=== PATIENT | female | born 1960 | race African-American/Black ===

== ENCOUNTER 2018-04-05 02:10 | Inpatient (IN) | payer BC ==
[2018-04-05] MEDS ORDERED: DOCUSATE SODIUM 100 MG CAP PO (03:00)
[2018-04-05] MEDS ORDERED: NACL 0.9% 3 ML SYG IV (03:00)
[2018-04-05] MEDS ORDERED: ONDANSETRON 4 MG INJ IV (03:00)
[2018-04-05] MEDS ORDERED: METOCLOPRAMIDE 10 MG INJ IV (03:00)
[2018-04-05] MEDS ORDERED: ACETAMINOPHEN 325 MG TAB PO (03:00)
[2018-04-05] MEDS ORDERED: BISACODYL (EC) 5 MG TAB PO (03:00)
[2018-04-05] MEDS: SOD CHLORIDE 0.9% 1,000 ML IV ×5 (03:28→23:03)
[2018-04-05] MEDS: morphine 4 MG/ML VIAL IV ×6 (03:42→20:40)
[2018-04-05 05:12] LABS: ADD MAN DIFF? NO
[2018-04-05 05:17] LABS: BASOPHILS % 0.2 % (0.0-2.0); EOSINOPHILS # 0.1 10^3/ul (0.0-0.5); EOSINOPHILS % 2.7 % (0.0-7.0); HEMATOCRIT 32.2 % (37.0-47.0); HEMOGLOBIN 10.4 g/dl (12.0-16.0); LYMPHOCYTES # 1.7 10^3/ul (0.8-2.9); LYMPHOCYTES % 36.7 % (15.0-51.0); MEAN CORPUSCULAR HEMOGLOBIN 29.9 pg (29.0-33.0); MEAN CORPUSCULAR HGB CONC 32.3 g/dl (32.0-37.0); MEAN CORPUSCULAR VOLUME 92.5 fl (82.0-101.0); MEAN PLATELET VOLUME 9.9 fl (7.4-10.4); MONOCYTE # 0.4 10^3/ul (0.3-0.9); MONOCYTES % 8.2 % (0.0-11.0); NEUTROPHIL # 2.3 10^3/ul (1.6-7.5); NEUTROPHILS % 51.8 % (39.0-77.0); PLATELET COUNT 205 10^3/UL (140-415); RED BLOOD COUNT 3.48 10^6/ul (4.20-5.40); RED CELL DISTRIBUTION WIDTH 13.6 % (11.5-14.5)
[2018-04-05 05:17] LABS: WHITE BLOOD COUNT 4.5 10^3/ul (4.8-10.8)
[2018-04-05] MEDS ORDERED: ALBUTEROL 0.083% (NEB) 2.5 MG/3 ML AMP HHN (05:30)
[2018-04-05 05:33] LABS: INR 0.99; PROTIME 13.2 Sec (11.9-14.9)
[2018-04-05 05:34] LABS: PARTIAL THROMBOPLASTIN TIME 28.3 Sec (23.0-35.0)
[2018-04-05 05:36] LABS: LIPASE 917 U/L (23-300)
[2018-04-05 05:39] LABS: ALANINE AMINOTRANSFERASE 23 IU/L (13-69); ALBUMIN 3.3 g/dl (3.3-4.9); ALBUMIN/GLOBULIN RATIO 1.22; ALKALINE PHOSPHATASE 110 IU/L (42-121); AMYLASE 166 U/L (11-123); ANION GAP 9 (5-13); ASPARTATE AMINO TRANSFERASE 21 IU/L (15-46); BILIRUBIN,INDIRECT 0.1 mg/dl (0-1.1); BILIRUBIN,TOTAL 0.1 mg/dl (0.2-1.3); BLOOD UREA NITROGEN 10 mg/dl (7-20); CALCIUM 8.4 mg/dl (8.4-10.2); CARBON DIOXIDE 27 mmol/L (21-31); CHLORIDE 108 mmol/L (97-110); CHOLESTEROL 170 mg/dl (100-200); CREATININE 0.57 mg/dl (0.44-1.00); Estimated GFR > 60 mL/min (>60); GLUCOSE 109 mg/dl (70-220); HDL CHOLESTEROL 28 mg/dl (37-92); LDL CHOLESTEROL,CALCULATED 118 mg/dl; MAGNESIUM 1.6 mg/dl (1.7-2.5); POTASSIUM 3.5 mmol/L (3.5-5.1); SODIUM 144 mmol/L (135-144); TRIGLYCERIDES 118 mg/dl (0-149)
[2018-04-05 05:44] LABS: HEMOGLOBIN A1C 5.9 % (0-5.9)
[2018-04-05] MEDS: AMLODIPINE 5 MG TAB PO (08:54)
[2018-04-05] MEDS: BENAZEPRIL 20 MG TAB PO (08:54)
[2018-04-05] MEDS: DIATR MEGLU/DIATRIZOATE SODIUM 120 ML BTL (11:11)
[2018-04-05] MEDS: MAGNESIUM SULFATE 2 GM/50 ML 50 ML IVPB (14:45)
[2018-04-05 17:28] LABS: ADD UMIC NO; UR ASCORBIC ACID NEGATIVE (NEGATIVE); UR BILIRUBIN (Dip) NEGATIVE (NEGATIVE); UR BLOOD (Dip) NEGATIVE (NEGATIVE); UR CLARITY CLEAR (CLEAR); UR COLOR YELLOW (YELLOW); UR GLUCOSE (Dip) NEGATIVE (NEGATIVE); UR KETONES (Dip) NEGATIVE (NEGATIVE); UR LEUKOCYTE ESTERASE (Dip) NEGATIVE Leu/ul (NEGATIVE); UR NITRITE (Dip) NEGATIVE (NEGATIVE); UR SPECIFIC GRAVITY (Dip) 1.016 (1.003-1.030); UR TOTAL PROTEIN (Dip) NEGATIVE (NEGATIVE); UR UROBILINOGEN (Dip) NEGATIVE (NEGATIVE)
[2018-04-05 17:51] LABS: AMPHETAMINE/METHAMPHETAMINE Negative (NEGATIVE); BARBITURATES Negative (NEGATIVE); BENZODIAZEPINES Negative (NEGATIVE); CANNABINOIDS Negative (NEGATIVE); COCAINE Negative (NEGATIVE)
[2018-04-05 18:00] LABS: OPIATES Positive (NEGATIVE)
[2018-04-05] MEDS: CARISOPRODOL 350 MG TAB PO (21:53)
[2018-04-06] MEDS: morphine 4 MG/ML VIAL IV ×6 (00:01→21:00)
[2018-04-06] MEDS: CARISOPRODOL 350 MG TAB PO (04:18)
[2018-04-06] MEDS: SOD CHLORIDE 0.9% 1,000 ML IV ×5 (04:19→23:46)
[2018-04-06 06:13] LABS: ADD MAN DIFF? NO
[2018-04-06 06:16] LABS: WHITE BLOOD COUNT 6.4 10^3/ul (4.8-10.8)
[2018-04-06 06:16] LABS: BASOPHILS % 0.3 % (0.0-2.0); EOSINOPHILS # 0.1 10^3/ul (0.0-0.5); HEMATOCRIT 31.7 % (37.0-47.0); HEMOGLOBIN 10.5 g/dl (12.0-16.0); LYMPHOCYTES # 1.7 10^3/ul (0.8-2.9); LYMPHOCYTES % 26.1 % (15.0-51.0); MEAN CORPUSCULAR HEMOGLOBIN 29.9 pg (29.0-33.0); MEAN CORPUSCULAR HGB CONC 33.1 g/dl (32.0-37.0); MEAN CORPUSCULAR VOLUME 90.3 fl (82.0-101.0); MEAN PLATELET VOLUME 9.5 fl (7.4-10.4); MONOCYTE # 0.4 10^3/ul (0.3-0.9); MONOCYTES % 5.5 % (0.0-11.0); NEUTROPHIL # 4.2 10^3/ul (1.6-7.5); NEUTROPHILS % 65.8 % (39.0-77.0); PLATELET COUNT 252 10^3/UL (140-415); RED BLOOD COUNT 3.51 10^6/ul (4.20-5.40); RED CELL DISTRIBUTION WIDTH 13.4 % (11.5-14.5)
[2018-04-06 06:45] LABS: LIPASE 432 U/L (23-300)
[2018-04-06 06:48] LABS: MAGNESIUM 1.9 mg/dl (1.7-2.5)
[2018-04-06 06:48] LABS: PHOSPHORUS 2.5 mg/dl (2.5-4.9)
[2018-04-06 07:13] LABS: ALANINE AMINOTRANSFERASE 26 IU/L (13-69); ALBUMIN 3.5 g/dl (3.3-4.9); ALBUMIN/GLOBULIN RATIO 1.25; ALKALINE PHOSPHATASE 125 IU/L (42-121); AMYLASE 107 U/L (11-123); ANION GAP 11 (5-13); ASPARTATE AMINO TRANSFERASE 21 IU/L (15-46); BILIRUBIN,INDIRECT 0.1 mg/dl (0-1.1); BILIRUBIN,TOTAL 0.1 mg/dl (0.2-1.3); BLOOD UREA NITROGEN 4 mg/dl (7-20); CARBON DIOXIDE 26 mmol/L (21-31); CHLORIDE 106 mmol/L (97-110); Estimated GFR > 60 mL/min (>60); GLUCOSE 172 mg/dl (70-220); POTASSIUM 3.4 mmol/L (3.5-5.1); SODIUM 143 mmol/L (135-144); TOTAL PROTEIN 6.3 g/dl (6.1-8.1)
[2018-04-06] MEDS: BENAZEPRIL 20 MG TAB PO (08:57)
[2018-04-06] MEDS: AMLODIPINE 5 MG TAB PO (08:57)
[2018-04-06] MEDS: BARIUM SULF 2% 450 ML BTL (BERRY SMOOTHIE) PO (13:31)
[2018-04-06] MEDS: VANCOMYCIN HCL 250 MG/5ML POSYG PO ×2 (13:42→17:40)
[2018-04-06] MEDS: METOCLOPRAMIDE 10 MG INJ IV ×2 (14:45→21:00)
[2018-04-06] MEDS: IOHEXOL 300MG/ML 150 ML BTL (15:13)
[2018-04-06] MEDS: SOD CHLORIDE 0.9% 100 ML (15:13)
[2018-04-06] MEDS: POTASSIUM CHLORIDE (SR) 10 MEQ TAB PO (20:59)
[2018-04-07] MEDS: VANCOMYCIN HCL 250 MG/5ML POSYG PO ×5 (00:30→23:57)
[2018-04-07] MEDS: morphine 4 MG/ML VIAL IV ×7 (00:31→23:05)
[2018-04-07] MEDS: SOD CHLORIDE 0.9% 1,000 ML IV ×4 (02:32→09:46)
[2018-04-07] MEDS: METOCLOPRAMIDE 10 MG INJ IV ×3 (03:00→08:33)
[2018-04-07 06:31] LABS: ADD MAN DIFF? NO
[2018-04-07 06:48] LABS: BASOPHILS % 0.5 % (0.0-2.0); EOSINOPHILS # 0.2 10^3/ul (0.0-0.5); EOSINOPHILS % 2.8 % (0.0-7.0); HEMATOCRIT 32.1 % (37.0-47.0); HEMOGLOBIN 10.8 g/dl (12.0-16.0); LYMPHOCYTES # 2.3 10^3/ul (0.8-2.9); LYMPHOCYTES % 35.7 % (15.0-51.0); MEAN CORPUSCULAR HEMOGLOBIN 29.8 pg (29.0-33.0); MEAN CORPUSCULAR HGB CONC 33.6 g/dl (32.0-37.0); MEAN CORPUSCULAR VOLUME 88.4 fl (82.0-101.0); MEAN PLATELET VOLUME 9.8 fl (7.4-10.4); MONOCYTE # 0.5 10^3/ul (0.3-0.9); MONOCYTES % 7.8 % (0.0-11.0); NEUTROPHIL # 3.4 10^3/ul (1.6-7.5); NEUTROPHILS % 52.9 % (39.0-77.0); PLATELET COUNT 266 10^3/UL (140-415); RED BLOOD COUNT 3.63 10^6/ul (4.20-5.40)
[2018-04-07 06:48] LABS: WHITE BLOOD COUNT 6.4 10^3/ul (4.8-10.8)
[2018-04-07 07:01] LABS: LIPASE 221 U/L (23-300)
[2018-04-07 07:07] LABS: AMYLASE 60 U/L (11-123)
[2018-04-07 07:14] LABS: PHOSPHORUS 2.9 mg/dl (2.5-4.9)
[2018-04-07 07:14] LABS: MAGNESIUM 1.7 mg/dl (1.7-2.5)
[2018-04-07 07:23] LABS: ALANINE AMINOTRANSFERASE 24 IU/L (13-69); ALBUMIN 3.7 g/dl (3.3-4.9); ALBUMIN/GLOBULIN RATIO 1.32; ALKALINE PHOSPHATASE 132 IU/L (42-121); ANION GAP 10 (5-13); ASPARTATE AMINO TRANSFERASE 27 IU/L (15-46); BILIRUBIN,INDIRECT 0.3 mg/dl (0-1.1); BILIRUBIN,TOTAL 0.3 mg/dl (0.2-1.3); BLOOD UREA NITROGEN 3 mg/dl (7-20); CALCIUM 8.7 mg/dl (8.4-10.2); CARBON DIOXIDE 29 mmol/L (21-31); CHLORIDE 106 mmol/L (97-110); CREATININE 0.53 mg/dl (0.44-1.00); Estimated GFR > 60 mL/min (>60); GLUCOSE 115 mg/dl (70-220); POTASSIUM 3.5 mmol/L (3.5-5.1); SODIUM 145 mmol/L (135-144); TOTAL PROTEIN 6.5 g/dl (6.1-8.1)
[2018-04-07] MEDS: AMLODIPINE 5 MG TAB PO (08:32)
[2018-04-07] MEDS: BENAZEPRIL 20 MG TAB PO (08:32)
[2018-04-07] MEDS ORDERED: METOCLOPRAMIDE 10 MG INJ IV (09:00)
[2018-04-07] MEDS: ENOXAPARIN 40 MG/0.4 ML SYG SC (13:13)
[2018-04-07] MEDS: LACTOBACILLUS RHAMNOSUS CAP PO (20:51)
[2018-04-08] MEDS: morphine 4 MG/ML VIAL IV ×5 (03:19→21:57)
[2018-04-08] MEDS: CARISOPRODOL 350 MG TAB PO ×2 (04:16→22:03)
[2018-04-08] MEDS: VANCOMYCIN HCL 250 MG/5ML POSYG PO ×3 (05:10→17:51)
[2018-04-08 05:46] LABS: ADD MAN DIFF? NO
[2018-04-08 05:50] LABS: WHITE BLOOD COUNT 6.5 10^3/ul (4.8-10.8)
[2018-04-08 05:50] LABS: BASOPHILS % 0.3 % (0.0-2.0); EOSINOPHILS # 0.2 10^3/ul (0.0-0.5); EOSINOPHILS % 2.9 % (0.0-7.0); HEMATOCRIT 33.3 % (37.0-47.0); LYMPHOCYTES # 2.7 10^3/ul (0.8-2.9); LYMPHOCYTES % 40.7 % (15.0-51.0); MEAN CORPUSCULAR HEMOGLOBIN 29.2 pg (29.0-33.0); MEAN CORPUSCULAR VOLUME 88.3 fl (82.0-101.0); MEAN PLATELET VOLUME 9.9 fl (7.4-10.4); MONOCYTE # 0.5 10^3/ul (0.3-0.9); MONOCYTES % 7.2 % (0.0-11.0); NEUTROPHIL # 3.2 10^3/ul (1.6-7.5); NEUTROPHILS % 48.6 % (39.0-77.0); PLATELET COUNT 277 10^3/UL (140-415); RED BLOOD COUNT 3.77 10^6/ul (4.20-5.40); RED CELL DISTRIBUTION WIDTH 13.1 % (11.5-14.5)
[2018-04-08 05:55] LABS: POSITIVE DIFF @See below
[2018-04-08 06:06] LABS: ALANINE AMINOTRANSFERASE 35 IU/L (13-69); ALBUMIN 3.8 g/dl (3.3-4.9); ALBUMIN/GLOBULIN RATIO 1.22; ALKALINE PHOSPHATASE 140 IU/L (42-121); ANION GAP 10 (5-13); ASPARTATE AMINO TRANSFERASE 57 IU/L (15-46); BILIRUBIN,INDIRECT 0.1 mg/dl (0-1.1); BILIRUBIN,TOTAL 0.1 mg/dl (0.2-1.3); BLOOD UREA NITROGEN 5 mg/dl (7-20); CALCIUM 9.2 mg/dl (8.4-10.2); CARBON DIOXIDE 30 mmol/L (21-31); CHLORIDE 104 mmol/L (97-110); CREATININE 0.57 mg/dl (0.44-1.00); Estimated GFR > 60 mL/min (>60); GLUCOSE 154 mg/dl (70-220); MAGNESIUM 1.8 mg/dl (1.7-2.5); POTASSIUM 3.3 mmol/L (3.5-5.1); SODIUM 144 mmol/L (135-144); TOTAL PROTEIN 6.9 g/dl (6.1-8.1)
[2018-04-08] MEDS: BENAZEPRIL 20 MG TAB PO (08:44)
[2018-04-08] MEDS: LACTOBACILLUS RHAMNOSUS CAP PO ×2 (08:44→21:55)
[2018-04-08] MEDS: AMLODIPINE 5 MG TAB PO (08:44)
[2018-04-08] MEDS: ENOXAPARIN 40 MG/0.4 ML SYG SC (08:47)
[2018-04-09] MEDS: morphine 4 MG/ML VIAL IV ×6 (01:09→21:34)
[2018-04-09] MEDS: VANCOMYCIN HCL 250 MG/5ML POSYG PO ×4 (01:15→17:41)
[2018-04-09] MEDS: BENAZEPRIL 20 MG TAB PO (09:02)
[2018-04-09] MEDS: LACTOBACILLUS RHAMNOSUS CAP PO ×2 (09:02→21:34)
[2018-04-09] MEDS: AMLODIPINE 5 MG TAB PO (09:02)
[2018-04-09] MEDS: ENOXAPARIN 40 MG/0.4 ML SYG SC (09:04)
[2018-04-09 13:19] LABS: ADD MAN DIFF? NO
[2018-04-09 13:22] LABS: BASOPHILS % 0.5 % (0.0-2.0); EOSINOPHILS # 0.1 10^3/ul (0.0-0.5); EOSINOPHILS % 1.7 % (0.0-7.0); HEMATOCRIT 34.7 % (37.0-47.0); HEMOGLOBIN 11.4 g/dl (12.0-16.0); LYMPHOCYTES # 2.6 10^3/ul (0.8-2.9); MEAN CORPUSCULAR HEMOGLOBIN 29.9 pg (29.0-33.0); MEAN CORPUSCULAR HGB CONC 32.9 g/dl (32.0-37.0); MEAN CORPUSCULAR VOLUME 91.1 fl (82.0-101.0); MEAN PLATELET VOLUME 9.5 fl (7.4-10.4); MONOCYTE # 0.4 10^3/ul (0.3-0.9); MONOCYTES % 5.8 % (0.0-11.0); NEUTROPHIL # 3.3 10^3/ul (1.6-7.5); NEUTROPHILS % 51.8 % (39.0-77.0); PLATELET COUNT 284 10^3/UL (140-415); RED BLOOD COUNT 3.81 10^6/ul (4.20-5.40); RED CELL DISTRIBUTION WIDTH 13.3 % (11.5-14.5)
[2018-04-09 13:22] LABS: WHITE BLOOD COUNT 6.4 10^3/ul (4.8-10.8)
[2018-04-09 13:32] LABS: HEMOGLOBIN A1C 5.8 % (0-5.9)
[2018-04-09 13:45] LABS: ALANINE AMINOTRANSFERASE 60 IU/L (13-69); ALBUMIN 3.9 g/dl (3.3-4.9); ALBUMIN/GLOBULIN RATIO 1.34; ALKALINE PHOSPHATASE 158 IU/L (42-121); ANION GAP 7 (5-13); ASPARTATE AMINO TRANSFERASE 62 IU/L (15-46); BLOOD UREA NITROGEN 9 mg/dl (7-20); CALCIUM 8.9 mg/dl (8.4-10.2); CARBON DIOXIDE 33 mmol/L (21-31); CHLORIDE 104 mmol/L (97-110); CHOL/HDL RATIO 6.2 RATIO; CHOLESTEROL 181 mg/dl (100-200); CREATININE 0.61 mg/dl (0.44-1.00); Estimated GFR > 60 mL/min (>60); GLUCOSE 112 mg/dl (70-220); HDL CHOLESTEROL 29 mg/dl (37-92); LDL CHOLESTEROL,CALCULATED 103 mg/dl; MAGNESIUM 1.8 mg/dl (1.7-2.5); POTASSIUM 3.8 mmol/L (3.5-5.1); SODIUM 144 mmol/L (135-144); TOTAL PROTEIN 6.8 g/dl (6.1-8.1); TRIGLYCERIDES 243 mg/dl (0-149)
[2018-04-09 14:02] LABS: T4 (THYROXINE) 8.4 ug/dl (5.5-11.0)
[2018-04-09 14:15] LABS: TRIIODOTHYRONINE 1.34 ng/ml (0.97-1.69)
[2018-04-09 14:51] LABS: HIV 1&2 ANTIBODY NEGATIVE (NEGATIVE)
[2018-04-09 15:12] LABS: RAPID PLASMA REAGIN NONREACTIVE (NR)
[2018-04-09] MEDS: HEPARIN (100 UNITS/ML) 5 ML SYG CATHETER (16:00)
[2018-04-09 18:43] LABS: ADD UMIC NO; UR ASCORBIC ACID NEGATIVE (NEGATIVE); UR BILIRUBIN (Dip) NEGATIVE (NEGATIVE); UR BLOOD (Dip) NEGATIVE (NEGATIVE); UR CALCIUM OXALATE CRYSTAL MODERATE /HPF (NONE SEEN); UR CLARITY SLIGHTLY CLOUDY (CLEAR); UR COLOR YELLOW (YELLOW); UR GLUCOSE (Dip) NEGATIVE (NEGATIVE); UR KETONES (Dip) NEGATIVE (NEGATIVE); UR LEUKOCYTE ESTERASE (Dip) NEGATIVE Leu/ul (NEGATIVE); UR MUCUS FEW /HPF (NONE SEEN); UR NITRITE (Dip) NEGATIVE (NEGATIVE); UR RBC 0 /HPF (0-5); UR SPECIFIC GRAVITY (Dip) 1.021 (1.003-1.030); UR TOTAL PROTEIN (Dip) NEGATIVE (NEGATIVE); UR URIC ACID CRYSTAL MANY /HPF (NONE SEEN); UR UROBILINOGEN (Dip) NEGATIVE (NEGATIVE); UR WBC 0 /HPF (0-5)
[2018-04-10] MEDS: morphine 4 MG/ML VIAL IV ×3 (00:51→11:24)
[2018-04-10] MEDS: VANCOMYCIN HCL 250 MG/5ML POSYG PO ×2 (00:51→05:30)
[2018-04-10] MEDS: CARISOPRODOL 350 MG TAB PO (06:38)
[2018-04-10] MEDS: BENAZEPRIL 20 MG TAB PO (09:20)
[2018-04-10] MEDS: LACTOBACILLUS RHAMNOSUS CAP PO (09:20)
[2018-04-10] MEDS: AMLODIPINE 5 MG TAB PO (09:21)
[2018-04-10] MEDS: ENOXAPARIN 40 MG/0.4 ML SYG SC (09:32)
[2018-04-15 21:37] LABS: TSH RECEPTOR ANTIBODY 14 (< OR = 16)
== END 2018-04-10 12:20 | disposition home health service (06) | DRG 372 ==
LOC: 2NE 04-06 05:22
PROVIDERS: Family Medicine
DX: A04.72 Enterocolitis due to Clostridium difficile, not specified as recurrent (principal); K86.1 Other chronic pancreatitis; J45.909 Unspecified asthma, uncomplicated; I10 Essential (primary) hypertension; K76.0 Fatty (change of) liver, not elsewhere classified; K57.90 Diverticulosis of intestine, part unspecified, without perforation or abscess without bleeding; E88.81 Metabolic syndrome and other insulin resistance; R62.7 Adult failure to thrive; Z68.32 Body mass index [BMI] 32.0-32.9, adult; N61.0 Mastitis without abscess
CPT/HCPCS: 74177; 74250; 76642; 80053; 80061; 80307; 81001; 81003; 82150; 82306; 82787; 83036; 83690; 83735; 84100; 84235; 84436; 84443; 84480; 85025; 85610; 85730; 86592; 86703; 87045; 87075; 87086; 87177

== ENCOUNTER 2018-04-18 16:26 | Emergency (ER) | payer BC ==
[2018-04-18 18:11] LABS: ADD UMIC NO; UR ASCORBIC ACID NEGATIVE (NEGATIVE); UR BILIRUBIN (Dip) NEGATIVE (NEGATIVE); UR BLOOD (Dip) NEGATIVE (NEGATIVE); UR CLARITY CLEAR (CLEAR); UR COLOR YELLOW (YELLOW); UR GLUCOSE (Dip) NEGATIVE (NEGATIVE); UR KETONES (Dip) NEGATIVE (NEGATIVE); UR LEUKOCYTE ESTERASE (Dip) NEGATIVE Leu/ul (NEGATIVE); UR NITRITE (Dip) NEGATIVE (NEGATIVE); UR SPECIFIC GRAVITY (Dip) 1.018 (1.003-1.030); UR TOTAL PROTEIN (Dip) NEGATIVE (NEGATIVE); UR UROBILINOGEN (Dip) NEGATIVE (NEGATIVE)
[2018-04-18 18:55] LABS: ADD MAN DIFF? NO
[2018-04-18 19:04] LABS: WHITE BLOOD COUNT 7.4 10^3/ul (4.8-10.8)
[2018-04-18 19:04] LABS: BASOPHILS % 0.3 % (0.0-2.0); EOSINOPHILS # 0.1 10^3/ul (0.0-0.5); EOSINOPHILS % 1.1 % (0.0-7.0); HEMATOCRIT 35.7 % (37.0-47.0); HEMOGLOBIN 11.5 g/dl (12.0-16.0); LYMPHOCYTES # 2.5 10^3/ul (0.8-2.9); LYMPHOCYTES % 33.3 % (15.0-51.0); MEAN CORPUSCULAR HEMOGLOBIN 29.5 pg (29.0-33.0); MEAN CORPUSCULAR HGB CONC 32.2 g/dl (32.0-37.0); MEAN CORPUSCULAR VOLUME 91.5 fl (82.0-101.0); MONOCYTE # 0.5 10^3/ul (0.3-0.9); MONOCYTES % 6.9 % (0.0-11.0); NEUTROPHIL # 4.3 10^3/ul (1.6-7.5); NEUTROPHILS % 58.1 % (39.0-77.0); PLATELET COUNT 269 10^3/UL (140-415); RED CELL DISTRIBUTION WIDTH 13.7 % (11.5-14.5)
[2018-04-18] MEDS: ONDANSETRON 4 MG INJ IV (19:08)
[2018-04-18] MEDS: SOD CHLORIDE 0.9% 500 ML IV (19:08)
[2018-04-18] MEDS: morphine 4 MG/ML VIAL IV (19:09)
[2018-04-18 19:21] LABS: ALANINE AMINOTRANSFERASE 23 IU/L (13-69); ALBUMIN 4.2 g/dl (3.3-4.9); ALKALINE PHOSPHATASE 148 IU/L (42-121); ANION GAP 10 (5-13); ASPARTATE AMINO TRANSFERASE 25 IU/L (15-46); BLOOD UREA NITROGEN 15 mg/dl (7-20); CALCIUM 9.6 mg/dl (8.4-10.2); CARBON DIOXIDE 24 mmol/L (21-31); CHLORIDE 105 mmol/L (97-110); CREATININE 0.67 mg/dl (0.44-1.00); Estimated GFR > 60 mL/min (>60); GLUCOSE 100 mg/dl (70-220); SODIUM 139 mmol/L (135-144); TOTAL PROTEIN 7.7 g/dl (6.1-8.1)
[2018-04-18] MEDS: HEPARIN (100 UNITS/ML) 5 ML SYG CATHETER (20:48)
== END 2018-04-18 21:15 | disposition home or self-care (01) ==
LOC: E/R 16:26
DX: R10.32 Left lower quadrant pain (principal); J45.909 Unspecified asthma, uncomplicated
CPT/HCPCS: 36415; 74176; 80053; 81003; 85025; 87086; 96374; 96375; 99285-25

== ENCOUNTER 2018-08-04 09:07 | Day surgery (SDC) | payer BC ==
[2018-08-04 11:29] LABS: ADD MAN DIFF? NO
[2018-08-04 11:33] LABS: BASOPHILS % 0.4 % (0.0-2.0); EOSINOPHILS # 0.1 10^3/ul (0.0-0.5); EOSINOPHILS % 0.9 % (0.0-7.0); HEMATOCRIT 36.5 % (37.0-47.0); HEMOGLOBIN 11.9 g/dl (12.0-16.0); LYMPHOCYTES # 2.3 10^3/ul (0.8-2.9); LYMPHOCYTES % 31.1 % (15.0-51.0); MEAN CORPUSCULAR HEMOGLOBIN 29.5 pg (29.0-33.0); MEAN CORPUSCULAR HGB CONC 32.6 g/dl (32.0-37.0); MEAN CORPUSCULAR VOLUME 90.6 fl (82.0-101.0); MEAN PLATELET VOLUME 9.6 fl (7.4-10.4); MONOCYTE # 0.6 10^3/ul (0.3-0.9); MONOCYTES % 7.9 % (0.0-11.0); NEUTROPHIL # 4.4 10^3/ul (1.6-7.5); NEUTROPHILS % 59.4 % (39.0-77.0); PLATELET COUNT 261 10^3/UL (140-415); RED BLOOD COUNT 4.03 10^6/ul (4.20-5.40); RED CELL DISTRIBUTION WIDTH 13.6 % (11.5-14.5)
[2018-08-04 11:33] LABS: WHITE BLOOD COUNT 7.4 10^3/ul (4.8-10.8)
[2018-08-04 11:53] LABS: INR 0.98; PROTIME 13.1 Sec (11.9-14.9)
[2018-08-04 11:54] LABS: PARTIAL THROMBOPLASTIN TIME 42.2 Sec (23.0-35.0)
[2018-08-04 12:08] LABS: ALANINE AMINOTRANSFERASE 25 IU/L (13-69); ALBUMIN 4.4 g/dl (3.3-4.9); ALBUMIN/GLOBULIN RATIO 1.22; ALKALINE PHOSPHATASE 165 IU/L (42-121); ANION GAP 10 (5-13); ASPARTATE AMINO TRANSFERASE 27 IU/L (15-46); BILIRUBIN,INDIRECT 0.4 mg/dl (0-1.1); BILIRUBIN,TOTAL 0.4 mg/dl (0.2-1.3); BLOOD UREA NITROGEN 11 mg/dl (7-20); CALCIUM 9.8 mg/dl (8.4-10.2); CARBON DIOXIDE 26 mmol/L (21-31); CHLORIDE 106 mmol/L (97-110); CREATININE 0.63 mg/dl (0.44-1.00); Estimated GFR > 60 mL/min (>60); GLUCOSE 118 mg/dl (70-220); POTASSIUM 3.9 mmol/L (3.5-5.1); SODIUM 142 mmol/L (135-144)
[2018-08-04] MEDS ORDERED: PROPOFOL 200 MG INJ (12:20)
[2018-08-04] MEDS ORDERED: FENTAnyl 50 MCG/ML VIAL (12:20)
[2018-08-04] MEDS ORDERED: PROPOFOL 20 ML (12:20)
[2018-08-04] MEDS ORDERED: LIDOCAINE 2% (SDV) 5 ML INJ (12:20)
[2018-08-04] MEDS: HEPARIN (100 UNITS/ML) 5 ML SYG CATHETER (14:00)
== END 2018-08-04 13:10 | disposition home or self-care (01) ==
LOC: GIL 09:07
DX: Z12.11 Encounter for screening for malignant neoplasm of colon (principal); K64.4 Residual hemorrhoidal skin tags; K29.70 Gastritis, unspecified, without bleeding; J45.909 Unspecified asthma, uncomplicated
CPT/HCPCS: 43239; 80053; 85025; 85610; 85730; 88305; 88312

== ENCOUNTER 2018-09-27 21:47 | Inpatient (IN) | payer BC ==
[2018-09-28] MEDS ORDERED: NACL 0.9% 3 ML SYG IV (01:00)
[2018-09-28] MEDS ORDERED: ALBUTEROL/IPRATROPIUM (NEB) 3 ML AMP HHN (01:00)
[2018-09-28] MEDS: SOD CHLORIDE 0.9% 1,000 ML IV ×3 (01:15→21:52)
[2018-09-28] MEDS ORDERED: traMADol 50 MG TAB PO (02:00)
[2018-09-28] MEDS: morphine 4 MG/ML VIAL IV ×5 (03:06→21:45)
[2018-09-28] MEDS: ONDANSETRON 4 MG INJ IV (03:14)
[2018-09-28 04:00] LABS: ADD UMIC YES; UR ASCORBIC ACID NEGATIVE (NEGATIVE); UR BACTERIA FEW /HPF (NONE SEEN); UR BILIRUBIN (Dip) NEGATIVE (NEGATIVE); UR BLOOD (Dip) 2+ mg/dL (NEGATIVE); UR CLARITY SLIGHTLY CLOUDY (CLEAR); UR COLOR YELLOW (YELLOW); UR GLUCOSE (Dip) NEGATIVE (NEGATIVE); UR KETONES (Dip) 1+ mg/dL (NEGATIVE); UR LEUKOCYTE ESTERASE (Dip) 2+ Leu/ul (NEGATIVE); UR MUCUS FEW /HPF (NONE SEEN); UR NITRITE (Dip) POSITIVE (NEGATIVE); UR RBC 8 /HPF (0-5); UR SPECIFIC GRAVITY (Dip) 1.015 (1.003-1.030); UR TOTAL PROTEIN (Dip) 1+ mg/dl (NEGATIVE); UR UROBILINOGEN (Dip) NEGATIVE (NEGATIVE); UR WBC > 182 /HPF (0-5)
[2018-09-28 04:58] LABS: ADD MAN DIFF? NO
[2018-09-28 05:00] LABS: WHITE BLOOD COUNT 16.7 10^3/ul (4.8-10.8)
[2018-09-28 05:00] LABS: BASOPHILS % 0.1 % (0.0-2.0); EOSINOPHILS % 0.1 % (0.0-7.0); HEMATOCRIT 29.9 % (37.0-47.0); HEMOGLOBIN 9.4 g/dl (12.0-16.0); LYMPHOCYTES # 1.6 10^3/ul (0.8-2.9); LYMPHOCYTES % 9.6 % (15.0-51.0); MEAN CORPUSCULAR HEMOGLOBIN 29.7 pg (29.0-33.0); MEAN CORPUSCULAR HGB CONC 31.4 g/dl (32.0-37.0); MEAN CORPUSCULAR VOLUME 94.6 fl (82.0-101.0); MONOCYTE # 0.7 10^3/ul (0.3-0.9); NEUTROPHIL # 14.3 10^3/ul (1.6-7.5); NEUTROPHILS % 85.6 % (39.0-77.0); PLATELET COUNT 207 10^3/UL (140-415); RED BLOOD COUNT 3.16 10^6/ul (4.20-5.40); RED CELL DISTRIBUTION WIDTH 14.5 % (11.5-14.5)
[2018-09-28 05:20] LABS: ALANINE AMINOTRANSFERASE 16 IU/L (13-69); ALBUMIN 3.1 g/dl (3.3-4.9); ALBUMIN/GLOBULIN RATIO 0.96; ALKALINE PHOSPHATASE 101 IU/L (42-121); ANION GAP 10 (5-13); ASPARTATE AMINO TRANSFERASE 18 IU/L (15-46); BILIRUBIN,INDIRECT 0.5 mg/dl (0-1.1); BILIRUBIN,TOTAL 0.5 mg/dl (0.2-1.3); BLOOD UREA NITROGEN 10 mg/dl (7-20); CALCIUM 7.3 mg/dl (8.4-10.2); CARBON DIOXIDE 24 mmol/L (21-31); CHLORIDE 110 mmol/L (97-110); CREATININE 0.75 mg/dl (0.44-1.00); Estimated GFR > 60 mL/min (>60); GLUCOSE 183 mg/dl (70-220); POTASSIUM 3.5 mmol/L (3.5-5.1); SODIUM 144 mmol/L (135-144); TOTAL PROTEIN 6.3 g/dl (6.1-8.1)
[2018-09-28] MEDS: AMLODIPINE 5 MG TAB PO (09:24)
[2018-09-28] MEDS: HEPARIN 5,000 UNIT/1 ML VIAL SC ×2 (09:25→20:56)
[2018-09-28] MEDS: CEFTRIAXONE 1 GM/50 ML (PMX) 50 ML IVPB (09:26)
[2018-09-28] MEDS ORDERED: KETOROLAC 15 MG INJ IV ×2 (12:20→12:30)
[2018-09-29] MEDS: morphine 4 MG/ML VIAL IV ×3 (05:49→18:35)
[2018-09-29 06:05] LABS: ADD MAN DIFF? NO
[2018-09-29 06:24] LABS: BASOPHILS % 0.3 % (0.0-2.0); EOSINOPHILS # 0.1 10^3/ul (0.0-0.5); EOSINOPHILS % 1.2 % (0.0-7.0); HEMATOCRIT 30.7 % (37.0-47.0); LYMPHOCYTES # 1.7 10^3/ul (0.8-2.9); LYMPHOCYTES % 17.9 % (15.0-51.0); MEAN CORPUSCULAR HGB CONC 32.6 g/dl (32.0-37.0); MEAN CORPUSCULAR VOLUME 92.2 fl (82.0-101.0); MEAN PLATELET VOLUME 10.7 fl (7.4-10.4); MONOCYTE # 0.6 10^3/ul (0.3-0.9); MONOCYTES % 5.9 % (0.0-11.0); NEUTROPHILS % 74.3 % (39.0-77.0); PLATELET COUNT 219 10^3/UL (140-415); RED BLOOD COUNT 3.33 10^6/ul (4.20-5.40); RED CELL DISTRIBUTION WIDTH 13.9 % (11.5-14.5)
[2018-09-29 06:24] LABS: WHITE BLOOD COUNT 9.5 10^3/ul (4.8-10.8)
[2018-09-29 06:48] LABS: ANION GAP 9 (5-13); BLOOD UREA NITROGEN 5 mg/dl (7-20); CALCIUM 8.1 mg/dl (8.4-10.2); CARBON DIOXIDE 27 mmol/L (21-31); CHLORIDE 104 mmol/L (97-110); CREATININE 0.72 mg/dl (0.44-1.00); Estimated GFR > 60 mL/min (>60); GLUCOSE 178 mg/dl (70-220); MAGNESIUM 1.9 mg/dl (1.7-2.5); PHOSPHORUS 1.7 mg/dl (2.5-4.9); POTASSIUM 3.4 mmol/L (3.5-5.1); SODIUM 140 mmol/L (135-144)
[2018-09-29] MEDS: HEPARIN 5,000 UNIT/1 ML VIAL SC ×2 (08:28→21:26)
[2018-09-29] MEDS: SOD CHLORIDE 0.9% 1,000 ML IV ×2 (08:30→16:45)
[2018-09-29] MEDS: CEFTRIAXONE 1 GM/50 ML (PMX) 50 ML IVPB (08:30)
[2018-09-29 14:34] LABS: LIPASE 57 U/L (23-300)
[2018-09-29 14:34] LABS: AMYLASE 45 U/L (11-123)
[2018-09-29 15:02] LABS: IRON 17 ug/dl (35-150)
[2018-09-29 15:03] LABS: HEMOGLOBIN A1C 5.6 % (0-5.9)
[2018-09-29 15:11] LABS: % IRON SATURATION 8 % SAT (22-52); TOTAL IRON BINDING CAPACITY 201 ug/dl (241-421)
[2018-09-29] MEDS: ONDANSETRON 4 MG INJ IV (17:05)
[2018-09-29] MEDS: POTASSIUM PHOSPHATE 15 MM in SOD CHLORIDE 0.9% 250 ML IVPB (17:10)
[2018-09-29] MEDS ORDERED: HYDROmorphONE 1 MG/ML SYG IV (17:30)
[2018-09-29 17:38] LABS: CHOLESTEROL 181 mg/dl (100-200)
[2018-09-29 17:38] LABS: HDL CHOLESTEROL 30 mg/dl (35-98); LDL CHOLESTEROL,CALCULATED 96 mg/dl; TRIGLYCERIDES 275 mg/dl (0-149)
[2018-09-29] MEDS: POLYETHYLENE GLYCOL 17 GM PACKET PO (21:23)
[2018-09-29] MEDS: DOCUSATE SODIUM 100 MG CAP PO (21:24)
[2018-09-30] MEDS: SOD CHLORIDE 0.9% 1,000 ML IV (01:12)
[2018-09-30] MEDS: ONDANSETRON 4 MG INJ IV (01:20)
[2018-09-30] MEDS: morphine 4 MG/ML VIAL IV ×2 (01:20→15:55)
[2018-09-30 08:21] LABS: ADD MAN DIFF? NO
[2018-09-30 08:27] LABS: BASOPHILS % 0.2 % (0.0-2.0); EOSINOPHILS # 0.2 10^3/ul (0.0-0.5); EOSINOPHILS % 3.4 % (0.0-7.0); HEMATOCRIT 29.1 % (37.0-47.0); HEMOGLOBIN 9.4 g/dl (12.0-16.0); LYMPHOCYTES # 1.6 10^3/ul (0.8-2.9); LYMPHOCYTES % 28.3 % (15.0-51.0); MEAN CORPUSCULAR HEMOGLOBIN 29.8 pg (29.0-33.0); MEAN CORPUSCULAR HGB CONC 32.3 g/dl (32.0-37.0); MEAN CORPUSCULAR VOLUME 92.4 fl (82.0-101.0); MEAN PLATELET VOLUME 10.2 fl (7.4-10.4); MONOCYTE # 0.7 10^3/ul (0.3-0.9); MONOCYTES % 12.1 % (0.0-11.0); NEUTROPHIL # 3.2 10^3/ul (1.6-7.5); NEUTROPHILS % 55.7 % (39.0-77.0); PLATELET COUNT 234 10^3/UL (140-415); RED BLOOD COUNT 3.15 10^6/ul (4.20-5.40); RED CELL DISTRIBUTION WIDTH 13.8 % (11.5-14.5)
[2018-09-30 08:27] LABS: WHITE BLOOD COUNT 5.8 10^3/ul (4.8-10.8)
[2018-09-30 08:56] LABS: ANION GAP 10 (5-13); BLOOD UREA NITROGEN 6 mg/dl (7-20); CALCIUM 8.2 mg/dl (8.4-10.2); CARBON DIOXIDE 27 mmol/L (21-31); CHLORIDE 107 mmol/L (97-110); CREATININE 0.71 mg/dl (0.44-1.00); Estimated GFR > 60 mL/min (>60); GLUCOSE 129 mg/dl (70-220); PHOSPHORUS 2.6 mg/dl (2.5-4.9); POTASSIUM 3.6 mmol/L (3.5-5.1); SODIUM 144 mmol/L (135-144)
[2018-09-30] MEDS: POLYETHYLENE GLYCOL 17 GM PACKET PO (09:20)
[2018-09-30] MEDS: DOCUSATE SODIUM 100 MG CAP PO (09:20)
[2018-09-30] MEDS: CEFTRIAXONE 1 GM/50 ML (PMX) 50 ML IVPB (09:20)
[2018-09-30] MEDS: HEPARIN 5,000 UNIT/1 ML VIAL SC (09:21)
[2018-09-30] MEDS: HEPARIN (100 UNITS/ML) 5 ML SYG CATHETER (18:03)
== END 2018-09-30 21:02 | disposition home or self-care (01) | DRG 872 ==
LOC: PP2 21:47
DX: A41.9 Sepsis, unspecified organism (principal); N39.0 Urinary tract infection, site not specified; I10 Essential (primary) hypertension; D64.9 Anemia, unspecified; G89.4 Chronic pain syndrome; M54.40 Lumbago with sciatica, unspecified side; J45.909 Unspecified asthma, uncomplicated; E66.9 Obesity, unspecified; Z87.19 Personal history of other diseases of the digestive system; Z87.09 Personal history of other diseases of the respiratory system; Z68.34 Body mass index [BMI] 34.0-34.9, adult
CPT/HCPCS: 74176; 80048; 80053; 80061; 81001; 82150; 83036; 83540; 83690; 83735; 84100; 85025; 87086

== ENCOUNTER 2018-12-28 20:36 | Emergency (ER) | payer BC ==
[2018-12-28] MEDS: morphine 4 MG/ML VIAL IM (21:29)
== END 2018-12-28 23:02 | disposition home or self-care (01) ==
LOC: E/R 20:36
DX: H92.01 Otalgia, right ear (principal); J45.909 Unspecified asthma, uncomplicated; I10 Essential (primary) hypertension; R40.2142 Coma scale, eyes open, spontaneous, at arrival to emergency department; R40.2252 Coma scale, best verbal response, oriented, at arrival to emergency department; R40.2362 Coma scale, best motor response, obeys commands, at arrival to emergency department; Z87.891 Personal history of nicotine dependence; Z79.82 Long term (current) use of aspirin
CPT/HCPCS: 70450; 96372; 99285-25